=== PATIENT | male | born 1970 | race Caucasian/White ===

== ENCOUNTER 2018-11-01 15:32 | Emergency (ER) | payer MEDICAID ==
[~2018-11-01] VITALS: Ht 182.9 cm; Wt 84.4 kg
--- NOTE | 2018-11-01 16:10 | NUR ---
PATIENT CAME IN TO THE ER C/O SOB X 2 DAYS, WAS AT URGENT CARE, ADVISED TO GO ED FOR ABNORMAL EKG DENIES CHEST PAIN. TAKES ADDERALL FOR ADD. CONNECTED TO THE MONITOR AND PULSE OX. KEPT COMFORTABLE, WILL CONTINUE TO MONITOR ACCORDINGLY.
[2018-11-01] MEDS ORDERED: ONDANSETRON HCL/PF 4 MG/2 ML VIAL IVP ONE (16:30)
[2018-11-01] MEDS ORDERED: LORAZEPAM 1 MG TABLET PO ONE (16:30)
[2018-11-01] MEDS ORDERED: ASPIRIN 325 MG TABLET PO ONE (16:30)
[2018-11-01] MEDS ORDERED: IV NS 0.9% 1,000 ML BAG IV ONE (16:30)
[2018-11-01] MEDS ORDERED: ASPIRIN 325 MG TABLET ONE (16:33)
[2018-11-01] MEDS ORDERED: LORAZEPAM 0.5 MG TABLET ONE (16:34)
[2018-11-01] MEDS ORDERED: ONDANSETRON HCL/PF 4 MG/2 ML VIAL ONE (16:40)
[2018-11-01 16:44] LABS: BASOPHILS # (AUTO) 0.1 /CMM (0.0-0.2); BASOPHILS % (AUTO) 0.5 % (0.0-2.0); EOSINOPHILS % (AUTO) 0.4 % (0.0-6.0); HEMATOCRIT 42 % (39-51); HEMOGLOBIN 13.8 g/dL (13.5-17.5); LYMPHOCYTES # (AUTO) 2.9 /CMM (0.8-4.8); LYMPHOCYTES % (AUTO) 20.2 % (20.0-44.0); MEAN CORPUSCULAR HGB CONC 33 g/dl (31.0-36.0); MEAN CORPUSCULAR VOLUME 89 fL (80-96); MONOCYTES # (AUTO) 0.8 /CMM (0.1-1.30); MONOCYTES % (AUTO) 5.3 % (2.0-12.0); NEUTROPHILS # (AUTO) 10.7 /CMM (1.8-8.9); NEUTROPHILS % (AUTO) 73.6 % (43.0-81.0); PLATELET COUNT (AUTO) 295 /CMM (150-450); RED BLOOD CELL COUNT(AUTO) 4.73 MIL/uL (4.5-6.0); WHITE BLOOD COUNT (AUTO) 14.5 K/uL (4.3-11.0)
[2018-11-01] MEDS ORDERED: ACET-868 PO (16:45)
[2018-11-01] MEDS ORDERED: MEMA10TA PO (16:45)
[2018-11-01] MEDS ORDERED: MAGN400O6 PO (16:45)
[2018-11-01] MEDS ORDERED: AMLO10TA4 PO (16:45)
[2018-11-01] MEDS ORDERED: LEVO25TA7 PO (16:45)
[2018-11-01] MEDS ORDERED: LISI40TA4 PO (16:45)
[2018-11-01] MEDS ORDERED: ATOR10TA PO (16:45)
[2018-11-01] MEDS ORDERED: DIVA125T32 PO (16:45)
[2018-11-01] MEDS ORDERED: MAG355OR18 PO (16:45)
[2018-11-01] MEDS ORDERED: FAMO-131 PO (16:45)
[2018-11-01] MEDS ORDERED: HYDR-4384 PO (16:45)
[2018-11-01] MEDS ORDERED: DOCU-141 PO (16:45)
[2018-11-01] MEDS ORDERED: VALP250C PO (16:45)
[2018-11-01] MEDS ORDERED: CLOP75TA15 PO (16:45)
[2018-11-01] MEDS ORDERED: HYDR25TA4 PO (16:45)
[2018-11-01 17:07] LABS: CALCIUM, SERUM 8.8 mg/dL (8.5-10.1); CREATININE 1.3 mg/dL (0.6-1.3); POTASSIUM 4.5 mmol/L (3.5-5.1)
[2018-11-01 17:14] LABS: ALBUMIN 2.7 g/dL (3.4-5.0); BILIRUBIN,DIRECT 0.1 mg/dL (0.0-0.2); BILIRUBIN,TOTAL 0.4 mg/dL (0.2-1.0); TOTAL PROTEIN, SERUM 6.4 g/dL (6.4-8.2)
[2018-11-01] MEDS ORDERED: CEFTRIAXONE 1GM BAG (ER ONLY) 50 ML IV ONE (17:27)
--- NOTE | 2018-11-01 17:29 | NUR ---
[facility] CALLED FOR CARDIOLOGY CONSULT,SPOKE WITH ART RN, VERIFIED THAT HE RECEIVE COPIES OF FACESHEET,EKG AND LABS
[2018-11-01] MEDS ORDERED: AZITHROMYCIN 500 MG in IV D5W 250 ML IV ONE (17:30)
[2018-11-01] MEDS ORDERED: CEFTRIAXONE 1GM BAG (ER ONLY) 1 GM/50 ML PIGGYBACK IV ONE (17:30)
--- NOTE | 2018-11-01 17:48 | NUR ---
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 TREADLE CUT OFF SAW OPERATOR ACCEPTED. AWAITING ANOTHER CALL FROM KARISHMA
--- NOTE | 2018-11-01 18:01 | NUR ---
CALLED [facility] HOTLINE TO HAVE IMAGES READ
[2018-11-01 18:17] VITALS: BP 136/90
[2018-11-01] MEDS ORDERED: FUROSEMIDE 40 MG/4 ML VIAL IV ONE (18:30)
[2018-11-01] MEDS ORDERED: FUROSEMIDE 40 MG/4 ML VIAL ONE (18:51)
--- NOTE | 2018-11-01 19:24 | NUR ---
patient transported to [facility] for higher level of care in no apparent distress. Report given to Ayden BHAKTA accepting nurse.
== END 2018-11-01 19:24 | disposition short-term general hospital (02) ==
LOC: ER 15:34
DX: I21.3 ST elevation (STEMI) myocardial infarction of unspecified site (principal); I50.9 Heart failure, unspecified; R11.10 Vomiting, unspecified; F90.9 Attention-deficit hyperactivity disorder, unspecified type; F12.10 Cannabis abuse, uncomplicated; R00.0 Tachycardia, unspecified
CPT/HCPCS: 36415; 71045; 80048; 80076; 83690; 83880; 84484; 85025; 85730; 93005; 96361; 96365; 96367; 96374; 96375; 99291; J0456; J0696; J1940; J2405; J7030; J7060